=== PATIENT | female | born 1945 | race Caucasian/White ===

== ENCOUNTER 2017-09-02 17:24 | Emergency (ER) | payer MEDICARE, OTHER ==
[~2017-09-02] VITALS: Ht 170.2 cm; Wt 91.6 kg
[2017-09-02] MEDS ORDERED: ASPIRIN 81 MG CHEW TAB PO ONE (17:30)
--- NOTE | 2017-09-02 18:05 | Diagnostic Imaging Report ---
PROCEDURE: A single AP view of the chest. COMPARISON: None. INDICATIONS: CHEST PAIN . FINDINGS: See impression. IMPRESSION: 1. lungs are well-inflated. No consolidation, effusion, or pulmonary edema. 2. Enlarged cardiac silhouette. Central pulmonary vasculature is normal. 3. No acute bony abnormalities. Glenroy Rice M.D. Dictated by: Glenroy Rice M.D. on 09/02/2017 at 18:07 Electronically approved by: Glenryo Rice M.D. on 09/02/2017 at 18:07
[2017-09-02] MEDS ORDERED: NITROGLYCERIN 2% OINT 1 GM PKT TOP ONE (18:15)
[2017-09-02] MEDS ORDERED: HEPARIN 25,000U/0.45% NS 250ML 900 UNIT in SODIUM CHLORIDE 0.9% 250ML 0 ML IV SCH (19:00)
[2017-09-02 19:13] LABS: BASOPHILS # (AUTO) 0.1 (0.0-0.1); BASOPHILS % 0.7 % (0.0-1.0); EOSINOPHILS # (AUTO) 0.3 (0.0-0.4); EOSINOPHILS % 2.9 % (0.0-6.0); HEMATOCRIT 50.1 % (34.2-44.1); HEMOGLOBIN 16.5 g/dL (12.0-16.0); LYMPHOCYTES # (AUTO) 1.2 (1.0-3.2); MEAN CORPUSCULAR HEMOGLOBIN 29.7 pg (28-32); MEAN CORPUSCULAR HGB CONC 32.9 g/dL (31-35); MEAN CORPUSCULAR VOLUME 90.3 fL (81-99); MONOCYTES # (AUTO) 0.9 (0.2-0.8); MONOCYTES % 9.5 % (4.4-11.3); NEUTROPHILS # (AUTO) 6.7 (2.1-6.9); NEUTROPHILS % 73.7 % (38.7-80.0); PLATELET COUNT 201 x10e3/uL (140-360); RED BLOOD COUNT 5.55 x10e6/uL (3.6-5.1); RED CELL DISTRIBUTION WIDTH 13.9 % (11.7-14.4)
[2017-09-02 19:20] LABS: INR 1.09; PROTHROMBIN TIME 13.3 seconds (11.9-14.5)
[2017-09-02 19:21] LABS: PARTIAL THROMBOPLASTIN TIME 25.5 seconds (23.8-35.5)
[2017-09-02 19:28] LABS: ALBUMIN/GLOBULIN RATIO 1.1 (0.8-2.0); ANION GAP 17.2 mmol/L (8-16); CALCIUM 10.7 mg/dL (8.4-10.2); CREATININE, SERUM 1.14 mg/dL (0.57-1.11); POTASSIUM 4.2 mmol/L (3.5-5.1)
[2017-09-02 19:47] LABS: CREATINE KINASE MB 4.4 ng/mL (0-5.0); THYROID STIMULATING HORMONE 0.555 uIU/mL (0.350-4.940)
[2017-09-02] MEDS ORDERED: LORAZEPAM 0.5 MG TAB PO ONE (21:30)
[2017-09-02] MEDS ORDERED: LITHIUM CARBONATE ER 300 MG TAB PO ONE (21:30)
== END 2017-09-03 03:00 | disposition short-term general hospital (02) ==
LOC: ER 17:24
DX: I20.0 Unstable angina (principal); I10 Essential (primary) hypertension; Z95.5 Presence of coronary angioplasty implant and graft; I44.0 Atrioventricular block, first degree
CPT/HCPCS: 36415; 71045; 80053; 82550; 82553; 82948; 84443; 84484; 85025; 85610; 85730; 93005; 99284; J1644; J7050